=== PATIENT | female | born 1990 | race African-American/Black ===

== ENCOUNTER 2021-06-23 10:40 | Emergency (ER) | payer OTHER ==
[~2021-06-23] VITALS: Ht 160 cm; Wt 70.6 kg
[2021-06-23 10:41] VITALS: BP 130/67
[2021-06-23] MEDS ORDERED: MULTTAB20 PO (11:24)
== END 2021-06-23 15:50 | disposition home or self-care (01) ==
LOC: M ED 10:40
DX: Z20.822 Contact with and (suspected) exposure to COVID-19 (principal); Z3A.24 24 weeks gestation of pregnancy
CPT/HCPCS: 99283; U0002

== ENCOUNTER 2021-06-25 08:53 | Emergency (ER) | payer OTHER ==
[~2021-06-25] VITALS: Ht 160 cm; Wt 70.3 kg
[~2021-06-25 08:53] MED LIST: MULTTAB20 PO
[2021-06-25 10:30] LABS: RSV AMPLIFICATION NEGATIVE (NEGATIVE)
[2021-06-25 13:42] VITALS: BP 109/63
== END 2021-06-25 14:12 | disposition home or self-care (01) ==
LOC: M ED 08:53
DX: O99.512 Diseases of the respiratory system complicating pregnancy, second trimester (principal); R05.9 Cough, unspecified; J02.9 Acute pharyngitis, unspecified; O98.512 Other viral diseases complicating pregnancy, second trimester; U07.1 COVID-19; Z3A.25 25 weeks gestation of pregnancy

== ENCOUNTER 2021-07-16 02:07 | Emergency (ER) | payer OTHER ==
[~2021-07-16] VITALS: Ht 160 cm; Wt 72.8 kg
[2021-07-16 03:22] LABS: BASO % 0.3 % (0.0-1.0); EOS # 0.1 10^3/uL (0.0-0.5); EOS % 1.4 % (0.0-3.0); LYMPH # 1.4 10^3/uL (1.5-5.0); MEAN CORPUSCULAR HEMOGLOBIN 31.3 pg (27.0-33.0); MEAN CORPUSCULAR HGB CONC 33.3 g/dl (32.0-36.5); MONO # 1.1 10^3/uL (0.0-0.8); MONO % 10.3 % (2.0-8.0); NEUTROPHILS # 7.4 10^3/uL (1.5-8.5); NEUTROPHILS % 72.5 % (36.0-66.0); PLATELET COUNT, AUTOMATED 222 10^3/uL (150-450); RED BLOOD COUNT 3.51 10^6/uL (4.00-5.40); WHITE BLOOD COUNT 10.2 10^3/uL (4.0-10.0)
[2021-07-16] MEDS ORDERED: NS 1,000 ML IV ONE (03:40)
[2021-07-16 03:49] LABS: BLOOD UREA NITROGEN 6 MG/DL (7-18); CALCIUM LEVEL 8.5 MG/DL (8.5-10.1); CARBON DIOXIDE LEVEL 23 MEQ/L (21-32); CHLORIDE LEVEL 110 MEQ/L (98-107); CREATININE FOR GFR 0.46 MG/DL (0.55-1.30); GLOMERULAR FILTRATION RATE > 60.0 (>60); GLUCOSE, FASTING 95 MG/DL (70-100); MAGNESIUM LEVEL 1.8 MG/DL (1.8-2.4); POTASSIUM SERUM 5.2 MEQ/L (3.5-5.1); SODIUM LEVEL 138 MEQ/L (136-145)
[2021-07-16 04:30] VITALS: BP 120/75
[2021-07-16] MEDS ORDERED: MAG SULF 1GM/100ML (MAG RUN) 1 GM in IV 1 EA IV ONE (04:45)
== END 2021-07-16 06:31 | disposition home or self-care (01) ==
LOC: M ED 02:07
DX: O99.352 Diseases of the nervous system complicating pregnancy, second trimester (principal); G43.909 Migraine, unspecified, not intractable, without status migrainosus; O99.282 Endocrine, nutritional and metabolic diseases complicating pregnancy, second trimester; E86.0 Dehydration; E83.42 Hypomagnesemia; Z3A.28 28 weeks gestation of pregnancy; Z79.899 Other long term (current) drug therapy
CPT/HCPCS: 76815; 80048; 83735; 85025; 96361; 96365; 96366; 99284; J3475

== ENCOUNTER 2021-08-07 02:21 | Emergency (ER) | payer OTHER ==
[~2021-08-07] VITALS: Ht 160 cm; Wt 73.3 kg
[2021-08-07 03:25] VITALS: BP 119/73
[2021-08-07] MEDS ORDERED: FAMOTIDINE 20 MG TAB PO ONE (03:35)
[2021-08-07] MEDS ORDERED: MAALOX 30 ML SUSP *UDC PO ONE (03:35)
[2021-08-07] MEDS ORDERED: PEPC1TAB5 PO (03:36)
== END 2021-08-07 04:01 | disposition home or self-care (01) ==
LOC: M ED 02:21
DX: O99.613 Diseases of the digestive system complicating pregnancy, third trimester (principal); K21.9 Gastro-esophageal reflux disease without esophagitis; Z79.899 Other long term (current) drug therapy; Z3A.31 31 weeks gestation of pregnancy

== ENCOUNTER 2021-09-24 13:19 | Inpatient (IN) | payer OTHER ==
[~2021-09-24] VITALS: Ht 160 cm; Wt 77.2 kg
[~2021-09-24 13:19] MED LIST changes: +PEPC1TAB5 PO
[2021-09-24 13:46] VITALS: BP 124/66
[2021-09-24] MEDS ORDERED: LIDOCAINE 1% MDV 20ML VIAL INFIL PRN (15:20)
[2021-09-24] MEDS ORDERED: METHYLERGONOVINE MALEATE 0.2 MG/ML VIAL (J2210) IM PRN (15:20)
[2021-09-24] MEDS ORDERED: OXYTOCIN DRIP 30 UNITS in IV 1 EA IV PRN (15:20)
[2021-09-24] MEDS ORDERED: TRANEXAMIC ACID INJection 1,000 MG in NS 100 ML IV PRN (15:20)
[2021-09-24] MEDS ORDERED: CARBOPROST TROMETHAMINE 250 MCG/ML AMP IM PRN (15:20)
[2021-09-24 15:27] VITALS: BP 126/90
[2021-09-24 15:42] LABS: HEMATOCRIT 37.1 % (36.0-47.0); HEMOGLOBIN 12.2 g/dl (12.0-15.5); MEAN CORPUSCULAR HEMOGLOBIN 31.7 pg (27.0-33.0); MEAN CORPUSCULAR HGB CONC 32.9 g/dl (32.0-36.5); MEAN CORPUSCULAR VOLUME 96.4 fl (80.0-96.0); PLATELET COUNT, AUTOMATED 193 10^3/uL (150-450); RED BLOOD COUNT 3.85 10^6/uL (4.00-5.40); WHITE BLOOD COUNT 10.7 10^3/uL (4.0-10.0)
[2021-09-24] MEDS ORDERED: miSOPROStol 50MCG 1/2 TABLET PO ONE (15:45)
[2021-09-24] MEDS ORDERED: LR 1,000 ML IV SCH (19:35)
[2021-09-24] MEDS ORDERED: OXYTOCIN DRIP 30 UNITS in IV 1 EA IV SCH (19:35)
[2021-09-24] MEDS ORDERED: BUTORPHANOL 2 MG/ML INJ (J0595) IV ONE (19:35)
[2021-09-24] MEDS ORDERED: PROMETHAZINE 25MG/ML 1ML VIAL IV ONE (19:35)
[2021-09-24] MEDS ORDERED: FENTANYL 2MCG/ML ROPIVACAINE 0.2% IN 0.9% NACL 100ML IVBAG As Ordered ONE (23:18)
[2021-09-24] MEDS ORDERED: EPIDURAL/PCA KEYS XX PRN (23:30)
[2021-09-24] MEDS ORDERED: REFRIGERATOR IV KEYS XX PRN (23:30)
[2021-09-24] MEDS ORDERED: LACTATED RINGER'S 1000 ML IV PRN (23:30)
[2021-09-24] MEDS ORDERED: EPIDURAL COMMENT XX SCH (23:30)
[2021-09-24] MEDS ORDERED: ONDANSETRON 4MG/2ML VIAL IV PRN (23:30)
[2021-09-24] MEDS ORDERED: diphenhydrAMINE 50MG/ML VIAL (J1200) IV PRN (23:30)
[2021-09-24] MEDS ORDERED: NALOXONE INJ 0.4MG/1ML VIAL (J2310 PER 1MG) IV PRN (23:30)
[2021-09-24] MEDS ORDERED: FENTANYL/ROPIVACAINE/NACL BAG 100 ML EPIDURAL SCH (23:30)
[2021-09-24] MEDS ORDERED: ePHEDrine SULFATE 25 MG/5 ML(5MG/ML) SYRINGE IV PRN (23:30)
[2021-09-25] VITALS (17 sets, daily range): BP systolic 110–145; BP diastolic 68–81
[2021-09-25] MEDS ORDERED: DIBUCAINE 1% OINTMENT 30GM TOP PRN (01:15)
[2021-09-25] MEDS ORDERED: MEASLES,MUMPS,RUBELLA VACCINE INJ (MMR-II) (90707) SC SCH (01:15)
[2021-09-25] MEDS ORDERED: ACETAMINOPHEN TAB 650MG DOSE (2X325MG) PO PRN (01:15)
[2021-09-25] MEDS ORDERED: DOCUSATE SODIUM 100MG CAPSULE PO PRN (01:15)
[2021-09-25] MEDS ORDERED: METHYLERGONOVINE MALEATE 0.2 MG TAB PO PRN (01:15)
[2021-09-25] MEDS ORDERED: RHOGAM 300 MCG (1500 IU) INJ (J2790) IM SCH (01:15)
[2021-09-25] MEDS: PRENATAL VITAMINS CHEWABLE TABLET PO SCH (07:35)
[2021-09-26] MEDS: IBUPROFEN 800 MG TAB PO PRN ×2 (05:02→15:20)
[2021-09-26 05:57] VITALS: BP 140/82
[2021-09-26] MEDS: PRENATAL VITAMINS CHEWABLE TABLET PO SCH (08:14)
[2021-09-26 18:06] VITALS: BP 134/82
[2021-09-27 06:00] VITALS: BP 135/83
[2021-09-27] MEDS: IBUPROFEN 800 MG TAB PO PRN (06:32)
[2021-09-27] MEDS: PRENATAL VITAMINS CHEWABLE TABLET PO SCH (07:38)
== END 2021-09-27 13:30 | disposition home or self-care (01) | DRG 807 ==
LOC: M LDI 13:19 → M OBS 09-25 02:35
PROVIDERS: ADMIT Registered Nurse; ATTEND Registered Nurse
PROC: 3E0P7GC Introduction of Other Therapeutic Substance into Female Reproductive, Via Natural or Artificial Opening (ICD-10-PCS; 2021-09-24)
PROC: 10E0XZZ Delivery of Products of Conception, External Approach (ICD-10-PCS; principal; 2021-09-25)
DX: O36.5930 Maternal care for other known or suspected poor fetal growth, third trimester, not applicable or unspecified (principal); Z37.0 Single live birth; Z3A.38 38 weeks gestation of pregnancy; O69.82X0 Labor and delivery complicated by other cord entanglement, without compression, not applicable or unspecified; O32.8XX0 Maternal care for other malpresentation of fetus, not applicable or unspecified; O69.81X0 Labor and delivery complicated by cord around neck, without compression, not applicable or unspecified

== ENCOUNTER 2024-03-02 00:47 | Emergency (ER) | payer OTHER ==
[~2024-03-02] VITALS: Ht 162.6 cm; Wt 60.2 kg
[2024-03-02 00:47] VITALS: BP 112/72; TEMP 97; O2SAT 100
== END 2024-03-02 05:55 | disposition left against medical advice (07) ==
LOC: M ED 00:47
DX: Z53.21 Procedure and treatment not carried out due to patient leaving prior to being seen by health care provider (principal)

== ENCOUNTER 2025-04-28 09:53 | Outpatient (RCR) | payer OTHER | END 2025-05-24 | LOC: M ST 09:53 | PROVIDERS: ATTEND Physician Assistant | DX: R49.0 Dysphonia (principal) ==